=== PATIENT | female | born 1990 | race Caucasian/White ===

== ENCOUNTER 2022-09-24 05:02 | Emergency (ER) | payer SELFPAY ==
[~2022-09-24] VITALS: Ht 152.4 cm; Wt 105.2 kg
--- NOTE | 2022-09-24 05:27 | ED Neck-Back Pain/Injury ---
General Chief Complaint: Head/Cervical Problems Stated Complaint: NECK & SHOULDER PX Source of Information: Patient History of Present Illness Date Seen by Provider: Sep 24, 2022 Time Seen by Provider: 05:13 Initial Comments PT ARRIVES VIA POV FROM HOME C/O POSTERIOR NECK PAIN RADIATING DOWN TO LEFT SHOULDER AND HAS NUMBNESS AND TINGLING IN HER LEFT HAND SYMPTOMS BEGAN 2 MONTHS AGO, AFTER FALLING UP SOME STAIRS--SHE CAUGHT HERSELF WITH OUTSTRETCHED LEFT HAND AND IT "ROMAN EVERYTHING" SHE DID NOT HIT HER HEAD OR HAVE ANY DIRECT TRAUMA TO HER NECK OR SHOULDER . SHE IS LEFT HANDED SHE DENIES ANY PRIOR PROBLEMS WITH HER NECK OR ARM OR HAND. SHE STATES SHE CANNOT LAY FLAT ON HER BACK DUE TO PAIN, HER NECK HURTS WHEN SHE SWALLOWS OR COUGHS,. AND SHE CAN'T SLEEP DUE TO PAIN STATES PAIN "JUST KEEPS GETTING WORSE" SHE JUST MOVED HERE 3 MONTHS AGO FROM [place] SHE HAS BEEN TO [facility] "SEVERAL" TIMES FOR THIS PROBLEM. SHE HAS NOT ATTEMPTED TO ESTABLISH WITH ANYONE THERE FOR PRIMARY CARE. SHE HAS HAD REGULAR PLAIN FILM XRAYS, NO OTHER TESTS SHE WAS THERE LAST WEEK AND WAS PRESCRIBED FLEXERIL AND A STEROID. 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 PT HAS HAD BTL. PT TAKES MEDICATION FOR DEPRESSION AND ANXIETY. SHE HAS HAD PRIOR CHOLECYSTECTOMY, BTL, AND SURGERIES FOR HYDRADENITIS. SHE SMOKES 1/2 PPD, DENIES DRUG OR ALCOHOL USE. SHE IS NOT COVID OR FLU VACCINATED Other Comments PCP: [facility] Allergies and Home Medications Allergies Coded Allergies: Sulfa (Sulfonamide Antibiotics) (Verified Allergy, Mild, 01/21/15) amoxicillin (Verified Allergy, Mild, 01/21/15) butorphanol (Verified Allergy, Mild, 01/21/15) clavulanic acid (Verified Allergy, Mild, 01/21/15) prochlorperazine (Verified Allergy, Unknown, 09/24/22) Patient Home Medication List Home Medication List Reviewed: Yes Meloxicam (Meloxicam) 15 Mg Tablet, 15 MG PO DAILY Prescribed by: TURNER GODWIN on 09/24/22 0611 Tizanidine HCl (Zanaflex) 4 Mg Capsule, 4 MG PO TID Prescribed by: TURNER GODWIN on 09/24/22 0611 Review of Systems Constitutional: no symptoms reported EENTM: no symptoms reported Respiratory: no symptoms reported Cardiovascular: no symptoms reported Gastrointestinal: no symptoms reported Genitourinary: no symptoms reported : No LMP: Sep 24, 2022 Control/STD Prophylaxis: Other (BTL) Musculoskeletal: see HPI Skin: no symptoms reported Psychiatric/Neurological: See HPI Past Uvauvnn-Ytyxjm-Ssmqiu Hx Patient Social History Tobacco Use?: Yes Tobacco type used: Cigarettes Smoking Status: Current Everyday Smoker Use of E-Cig and/or Vaping dev: No Substance use?: Yes Substance type: Marijuana Alcohol Use?: Yes Alcohol Frequency: Once in a while Pt feels they are or have been: No Immunizations Up To Date Influenza Vaccine Up-to-Date: No; Not Current First/Initial COVID19 Vaccinat: N/A Past Medical History Surgeries: Yes (SURGERY FOR HYDRADENITIS) Gallbladder, Tubal Ligation Respiratory: No Cardiac: No Neurological: No : No Reproductive Disorders: No Female Reproductive Disorders: Denies 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 oz. 81.113918pb; BMI Method: General Appearance: No Apparent Distress, WD/WN, Obese, Other (HOLDS HEAD AND BODY STIFFLY. DOES NOT MAKE EYE CONTACT. MARKEDLY EXAGGERATED PAIN RESPONSE. 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 NO DETERIORATION IN PT'S CONDITION DURING ER STAY REVIEWED PRIOR RECORDS- SINGLE PRIOR VISIT IN 2014 FOR UNRELATED COMPLAINT DISCUSSED TEST RESULTS, ANTICIPATED COURSE, SYMPTOMATIC TREATMENT, NEED FOR FOLLOW UP AND RETURN PRECAUTIONS. 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 -STRAIGHTENING OF NORMAL CERVICAL LORDOSIS, WHICH MAY REPRESENT MUSCLE SPASM OR POSITIONING. Reviewed: Reviewed by Me Departure Impression Primary Impression: Neck pain Additional Impression: DEGENERATIVE CHANGES OF CERVICAL SPINE. Disposition: 01 HOME, SELF-CARE Condition: Stable Departure-Patient Inst. Decision time for Depature: 06:07 Referrals: ALKA LEDEZMA DO [facility] Patient Instructions: Neck Pain ED Add. Discharge Instructions: MOIST HEAT TO NECK AT 20 MINUTE INTERVALS STOP FLEXERIL AND IBUPROFEN, THESE ARE BEING REPLACED WITH DIFFERENT MEDICATIONS FOLLOW UP WITH [facility] THIS WEEK FOR FURTHER CARE--CALL TODAY TO SCHEDULE AN APPOINTMENT All discharge instructions reviewed with patient and/or family. Voiced understanding. Scripts Meloxicam (Meloxicam) 15 Mg Tablet 15 MG PO DAILY, #10 TAB Prov: TURNER GODWIN DO 09/24/22 Tizanidine HCl (Zanaflex) 4 Mg Capsule 4 MG PO TID for Spasms, #15 CAP Prov: TURNER GODWIN DO 09/24/22 TURNER GODWIN DO Sep 24, 2022 05:27
[2022-09-24] MEDS ORDERED: TIZA4CAP PO (06:11)
[2022-09-24] MEDS ORDERED: MELO15TA39 PO (06:11)
--- NOTE | 2022-09-24 06:17 | Diagnostic Imaging Report ---
PROCEDURE: CT cervical spine without contrast. TECHNIQUE: Multiple contiguous axial images were obtained through the cervical spine without the use of intravenous contrast. Sagittal and coronal reformations were then performed. Auto Exposure Controls were utilized during the CT exam to meet ALARA standards for radiation dose reduction. INDICATION: Pain, left hand numbness. COMPARISON: 04/08/2015 FINDINGS: Straightening of the normal cervical lordosis without significant anterolisthesis or retrolisthesis. Alignment of the atlantooccipital joint is well maintained. Scattered endplate degenerative changes are present, particularly within the upper cervical spine. These have worsened since 2014. No evidence of a recent vertebral body compression deformity. Mild disc space height loss at C3/C4 and C4/C5. No severe disc space height loss. No acute fracture or dislocation. No destructive osseous process. Scattered facet joint degenerative changes and uncovertebral joint hypertrophy. Disc osteophyte complex is present at C3/C4, particularly on the right. There is resulting multilevel central canal and neural foraminal stenosis. This includes moderate central canal stenosis, particularly on the right at C3/C4. Moderate right neural foraminal stenosis and mild left neural foraminal stenosis also noted at C3/C4. Mild left neural foraminal stenosis at C5/C6. No apical pneumothorax. The paraspinal soft tissues are unremarkable. IMPRESSION: No acute osseous abnormality. Scattered degenerative changes as described above, greatest at C3/C4 where there appears to be significant central canal and neural foraminal stenosis. MRI of the cervical spine non-emergently is recommended for further evaluation, particularly given provided history of radiculopathy and numbness. Straightening of normal cervical lordosis, which may simply be positional, though can also relate to muscle spasm. Agree with preliminary interpretation. Dictated by: Dictated on workstation # [id number]
[2022-09-24 06:20] VITALS: BP 123/85
== END 2022-09-24 06:20 | disposition home or self-care (01) ==
LOC: EDUNIT# 05:02 → ER 05:07
DX: M47.812 Spondylosis without myelopathy or radiculopathy, cervical region (principal); F41.9 Anxiety disorder, unspecified; F32.A Depression, unspecified; E66.9 Obesity, unspecified; F17.210 Nicotine dependence, cigarettes, uncomplicated; Z68.42 Body mass index [BMI] 45.0-49.9, adult; Z28.310 Unvaccinated for COVID-19; Z79.899 Other long term (current) drug therapy
CPT/HCPCS: 72125

== ENCOUNTER 2023-01-20 13:17 | Emergency (ER) | payer SELFPAY ==
[~2023-01-20] VITALS: Ht 160 cm; Wt 118.0 kg
[~2023-01-20 13:17] MED LIST: MELO15TA39 PO; TIZA4CAP PO
[2023-01-20] MEDS ORDERED: morphine INJ 10 MG/ML 1ML (SYR OR VIAL) IVP STA (13:28)
--- NOTE | 2023-01-20 13:28 | ED Chest Pain ---
General Chief Complaint: Chest Pain Stated Complaint: CHEST PAINS | LT ARM TINGLING Nursing Triage Note: PT AMB TO RM 6 PT CO OF CHEST PAIN 8/10, DIZZINESS, NAUSEA, HANDS TINGLING, EDEMA OF LOWER EXT AND BROWN. PAIN STARTED AT 1100 TODAY Source: patient Exam Limitations: no limitations History of Present Illness Date Seen by Provider: Jan 20, 2023 Time Seen by Provider: 13:26 Initial Comments Patient is a 32-year-old female with a history of migraines, hypertension who presents to the ED for chest pain, headache, nausea, tingling left arm, dizziness. Symptoms started around 11 AM while at school. States that she started V[place] being this sharp pressure-like pain substernal chest. Pain has been constant rates 8 out of 10. Started having tingling down the left arm feeling dizzy with a headache. She states she has not had symptoms like this before. Associated shortness of breath and does report a mild cough. She noted dark spots in her vision. She denies any vomiting, diarrhea, abdominal pain, dysuria, hematuria. Last menstrual cycle 1 month ago. She notes increasing leg swelling over the past week. Currently on Norvasc, hydrochlorothiazide, losartan. Denies of any unilateral muscle weakness, facial droop, visual loss. Allergies and Home Medications Allergies Coded Allergies: Sulfa (Sulfonamide Antibiotics) (Verified Allergy, Mild, 01/21/15) amoxicillin (Verified Allergy, Mild, 01/21/15) butorphanol (Verified Allergy, Mild, 01/21/15) clavulanic acid (Verified Allergy, Mild, 01/21/15) prochlorperazine (Verified Allergy, Unknown, 09/24/22) Patient Home Medication List Home Medication List Reviewed: Yes Furosemide (Lasix) 20 Mg Tablet, 20 MG PO DAILY Prescribed by: JEREMY HAY on 01/20/23 1433 Meloxicam (Meloxicam) 15 Mg Tablet, 15 MG PO DAILY Prescribed by: TURNER GODWIN on 09/24/22 0611 Tizanidine HCl (Zanaflex) 4 Mg Capsule, 4 MG PO TID Prescribed by: TURNER GODWIN on 09/24/22 0611 Review of Systems Review of Systems Constitutional: No chills, No diaphoresis, No malaise, No weakness Respiratory: Cough; Denies Orthopnea; Shortness of Air Cardiovascular: Chest Pain Gastrointestinal: Denies Abdominal Pain, Denies Diarrhea; Nausea; Denies Vomiting Genitourinary: Denies Burning, Denies Discharge, Denies Drainage, Denies Frequency Musculoskeletal: No back pain, No joint pain Skin: No change in color, No change in hair/nails All Other Systems Reviewed Negative Unless Noted: Yes Past Szpiqst-Kddyzh-Joforl Hx Immunizations Up To Date First/Initial COVID19 Vaccinat: N/A Past Medical History Surgeries: Yes (SURGERY FOR HYDRADENITIS) Gallbladder, Tubal Ligation Respiratory: No Cardiac: No Neurological: No Last Menstrual Period: Dec 14, 2022 Reproductive Disorders: No Female 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 oz. 81.746245rw; 46.00 BMI Method: General Appearance: No Apparent Distress, WD/WN HEENT: PERRL/EOMI, TMs Normal, Normal ENT Inspection, Pharynx Normal Neck: Full Range of Motion, Normal Inspection, Non Tender, Supple Respiratory: Chest Non Tender, Lungs Clear, Normal Breath Sounds, No Accessory Muscle Use, No Respiratory Distress Cardiovascular: Regular Rate, Rhythm, No Edema, No Gallop, No JVD, No Murmur Gastrointestinal: Normal Bowel Sounds, No Organomegaly, No Pulsatile Mass, Non Tender, Soft Extremity: Normal Capillary Refill, Pedal Edema (Bilateral lower extremity edema) Neurologic/Psychiatric: Alert, Oriented x3, No Motor/Sensory Deficits, Normal Mood/Affect Skin: Normal Color, Warm/Dry Progress/Results/Core Measures Results/Orders Lab Results Laboratory Tests Test 01/20/23 13:29 01/20/23 13:44 Range/Units White Blood Count 7.6 4.3-11.0 10^3/uL Red Blood Count 4.97 3.80-5.11 10^6/uL Hemoglobin 14.0 11.5-16.0 g/dL Hematocrit 41 35-52 % Mean Corpuscular Volume 82 80-99 fL Mean Corpuscular Hemoglobin 28 25-34 pg Mean Corpuscular Hemoglobin Concent 34 32-36 g/dL Red Cell Distribution Width 12.7 10.0-14.5 % Platelet Count 221 130-400 10^3/uL Mean Platelet Volume 10.1 9.0-12.2 fL Immature Granulocyte % (Auto) 1 % Neutrophils (%) (Auto) 59 42-75 % Lymphocytes (%) (Auto) 28 12-44 % Monocytes (%) (Auto) 6 0-12 % Eosinophils (%) (Auto) 6 0-10 % Basophils (%) (Auto) 1 0-10 % Neutrophils # (Auto) 4.4 1.8-7.8 10^3/uL Lymphocytes # (Auto) 2.1 1.0-4.0 10^3/uL Monocytes # (Auto) 0.4 0.0-1.0 10^3/uL Eosinophils # (Auto) 0.5 H 0.0-0.3 10^3/uL Basophils # (Auto) 0.1 0.0-0.1 10^3/uL Immature Granulocyte # (Auto) 0.0 0.0-0.1 10^3/uL Prothrombin Time 13.5 12.2-14.7 SEC INR Comment 1.0 0.8-1.4 Activated Partial Thromboplast Time 27 24-35 SEC Sodium Level 138 135-145 MMOL/L Potassium Level 3.8 3.6-5.0 MMOL/L Chloride Level 102 98-107 MMOL/L Carbon Dioxide Level 23 21-32 MMOL/L Anion Gap 13 5-14 MMOL/L Blood Urea Nitrogen 8 7-18 MG/DL Creatinine 0.77 0.60-1.30 MG/DL Estimat Glomerular Filtration Rate 104 BUN/Creatinine Ratio 10 Glucose Level 106 H 70-105 MG/DL Calcium Level 9.7 8.5-10.1 MG/DL Corrected Calcium 9.5 8.5-10.1 MG/DL Magnesium Level 2.0 1.6-2.4 MG/DL Total Bilirubin 0.4 0.1-1.0 MG/DL Aspartate Amino Transf (AST/SGOT) 24 5-34 U/L Alanine Aminotransferase (ALT/SGPT) 34 0-55 U/L Alkaline Phosphatase 65 40-136 U/L Myoglobin 30.7 10.0-92.0 NG/ML Troponin I < 0.028 <0.028 NG/ML B-Type Natriuretic Peptide < 10.0 <100.0 PG/ML Total Protein 7.2 6.4-8.2 GM/DL Albumin 4.2 3.2-4.5 GM/DL Serum Test, Qualitative NEGATIVE NEGATIVE Urine Color YELLOW Urine Clarity CLEAR Urine pH 6.0 5-9 Urine Specific [place] 1.020 1.016-1.022 Urine Protein NEGATIVE NEGATIVE Urine Glucose (UA) NEGATIVE NEGATIVE Urine Ketones NEGATIVE NEGATIVE Urine Nitrite NEGATIVE NEGATIVE Urine Bilirubin NEGATIVE NEGATIVE Urine Urobilinogen 0.2 < = 1.0 MG/DL Urine Leukocyte Esterase NEGATIVE NEGATIVE Urine RBC (Auto) NEGATIVE NEGATIVE Urine RBC NONE /HPF Urine WBC RARE /HPF Urine Squamous Epithelial Cells 2-5 /HPF Urine Crystals NONE /LPF Urine Bacteria TRACE /HPF Urine Casts NONE /LPF Urine Mucus NEGATIVE /LPF Urine Culture Indicated NO Urine Opiates Screen NEGATIVE NEGATIVE Urine Oxycodone Screen NEGATIVE NEGATIVE Urine Methadone Screen NEGATIVE NEGATIVE Urine Propoxyphene Screen NEGATIVE NEGATIVE Urine Barbiturates Screen NEGATIVE NEGATIVE Ur Tricyclic Antidepressants Screen POSITIVE H NEGATIVE Urine Phencyclidine Screen NEGATIVE NEGATIVE Urine Amphetamines Screen NEGATIVE NEGATIVE Urine Methamphetamines Screen NEGATIVE NEGATIVE Urine Benzodiazepines Screen NEGATIVE NEGATIVE Urine Cocaine Screen NEGATIVE NEGATIVE Urine Cannabinoids Screen POSITIVE H NEGATIVE My Orders Orders - PATRICIA GLOVER PA Ekg Tracing (01/20/23 13:18) Cbc With Automated Diff (01/20/23 13:24) Magnesium (01/20/23 13:24) Chest 1 View, Ap/Pa Only (01/20/23 13:24) Comprehensive Metabolic Panel (01/20/23 13:24) Myoglobin Serum (01/20/23 13:24) Protime With Inr (01/20/23 13:24) Partial Thromboplastin Time (01/20/23 13:24) Monitor-Rhythm Ecg Trace Only (01/20/23 13:24) Lipid Panel (01/21/23 06:00) Ed Iv/Invasive Line Start (01/20/23 13:24) Bnp Agustín (01/20/23 13:24) Troponin I [place] (01/20/23 13:24) Aspirin Chewable Tablet (Baby Aspirin Ch (01/20/23 13:30) Hcg,Qualitative Serum (01/20/23 13:25) Ua Culture If Indicated (01/20/23 13:25) Morphine Injection (Morphine Injection (01/20/23 13:28) Ondansetron Injection (Zofran Injectio (01/20/23 13:30) Nitroglycerin 0.4 Mg Btl 25's (Nitrostat (01/20/23 13:31) Drug Screen Stat (Urine) (01/20/23 13:34) Medications Given in ED Current Medications Medications Dose Ordered Sig/[place] Route Start Time Stop Time Status Last Admin Dose Admin Aspirin 324 mg ONCE ONCE PO 01/20/23 13:30 01/20/23 13:31 DC 01/20/23 13:34 324 MG Nitroglycerin 0.4 mg STK-MED ONCE SL 01/20/23 13:31 01/20/23 13:33 DC 01/20/23 13:35 0.4 MG Ondansetron HCl 4 mg ONCE ONCE IVP 01/20/23 13:30 01/20/23 13:31 DC 01/20/23 13:34 4 MG Vital Signs/I&O 01/20/23 13:20 Pulse 75 Resp 18 B/P (MAP) 143/103 (116) Pulse Ox 95 O2 Delivery Room Air Blood Pressure Mean: 116 Comment Sinus rhythm, low QRS voltage in precordial leads, 66 bpm, QRS duration 89 MS, QTc 397 MS Departure Communication (PCP) Reviewed previous ER visits, H&P, lab testing. History of hypertension. Differential diagnosis, arrhythmia, ACS, CHF, pneumonia, anxiety. Patient presents ED with chest pain short of breath cough numbness tingling left arm, headache dizziness. Cute onset around 11 while doing homework at school. Similar type symptoms in the past and states this could be related to being in fatigued and tired. She reports bilateral leg swelling for the past week. She is currently on hydrochlorothiazide and losartan. She was on amlodipine but stopped the medication. She reports blood pressure function waning. No family history of sudden cardiac . Due to current complaint cardiac work-up chest x-ray EKG drug screen. Denies any drug use or alcohol use on a regular basis. History of marijuana use. CBC, CMP grossly unremarkable. Normal troponin and BNP. She does have pitting edema bilateral lower extremities. No evidence erythema or bruising. Tenderness to palpate bilateral. Dorsalis pedis +2 bilateral cap refill less than 2. EKG showed sinus rhythm without evidence of arrhythmia, ST elevation or pression. Chest x-ray negative for pleural effusion, pneumonia, pneumothorax. she received aspirin and a nitro for the chest pain which seemed to improve. She was hypertensive and blood pressure improved to 118/37. Normal coags. Normal kidney function. no neurological red flag findings suggesting emergent imaging. No recent travels or surgeries. Not on control. Low risk for PE. Low heart score. Patient remained asymptomatic for over a hour. She states pain has resolved. Due to improvement in symptoms with reassuring lab work low heart score patient will be discharged. Cardiology outpatient follow-up. Discussed providing 3 to 4 days of 20 mg of Lasix to help with lower extremity swelling. Discussed low salt diet. Elevate feet at night. Discussed getting up and moving around to help with the edema. Recommend follow-up your PCP in 2 to 3 days for reevaluation. If any worsening symptoms return back to ED. Impression Primary Impression: Chest pain Additional Impression: Lower extremity edema Disposition: 01 HOME, SELF-CARE Condition: Stable Departure-Patient Inst. Decision time for Depature: 14:32 Referrals: [facility] [place] Primary Care Physician YONIS PERDOMO MD Patient Instructions: Chest Pain Add. Discharge Instructions: Avoid salt diet. Elevate feet at night. Follow-up your PCP for reevaluation. Cardiology outpatient follow-up. Continue monitoring blood pressure.. If continue symptoms dizzy lightheaded return back to ED All discharge instructions reviewed with patient and/or family. Voiced understanding. Scripts Furosemide (Lasix) 20 Mg Tablet 20 MG PO DAILY for 4 Days, #4 TAB Prov: PATRICIA GLOVER 01/20/23 PATRICIA GLOVER Jan 20, 2023 13:28
[2023-01-20] MEDS ORDERED: ONDANSETRON 4 MG/2 ML (SDV) Z0FRAN IVP ONE (13:30)
[2023-01-20] MEDS ORDERED: ASPIRIN 81 MG CHEWABLE TABLET PO ONE (13:30)
[2023-01-20] MEDS ORDERED: NITROGLYCERIN 0.4 MG SL TABS BTL 25'S SL ONE (13:31)
[2023-01-20 13:40] LABS: BASOPHILS # (AUTO) 0.1 10^3/uL (0.0-0.1); BASOPHILS % (AUTO) 1 % (0-10); EOSINOPHILS # (AUTO) 0.5 10^3/uL (0.0-0.3); EOSINOPHILS % (AUTO) 6 % (0-10); HEMATOCRIT 41 % (35-52); LYMPHOCYTES # (AUTO) 2.1 10^3/uL (1.0-4.0); LYMPHOCYTES % (AUTO) 28 % (12-44); MEAN CORPUSCULAR HEMOGLOBIN 28 pg (25-34); MEAN CORPUSCULAR HGB CONC 34 g/dL (32-36); MEAN CORPUSCULAR VOLUME 82 fL (80-99); MEAN PLATELET VOLUME 10.1 fL (9.0-12.2); MONOCYTES # (AUTO) 0.4 10^3/uL (0.0-1.0); MONOCYTES % (AUTO) 6 % (0-12); NEUTROPHILS # (AUTO) 4.4 10^3/uL (1.8-7.8); NEUTROPHILS % (AUTO) 59 % (42-75); PLATELET COUNT 221 10^3/uL (130-400); WHITE BLOOD COUNT 7.6 10^3/uL (4.3-11.0)
[2023-01-20 13:47] LABS: ALBUMIN 4.2 GM/DL (3.2-4.5); CHLORIDE 102 MMOL/L (98-107); POTASSIUM 3.8 MMOL/L (3.6-5.0); SODIUM 138 MMOL/L (135-145)
[2023-01-20 13:48] LABS: CALCIUM 9.7 MG/DL (8.5-10.1)
[2023-01-20 13:49] LABS: GLUCOSE 106 MG/DL (70-105); PROTHROMBIN TIME PATIENT 13.5 SEC (12.2-14.7); TOTAL PROTEIN 7.2 GM/DL (6.4-8.2)
[2023-01-20 13:50] LABS: CARBON DIOXIDE 23 MMOL/L (21-32)
--- NOTE | 2023-01-20 13:50 | Diagnostic Imaging Report ---
INDICATION: Chest pain. EXAMINATION: Portable chest, 1:46 p.m. FINDINGS: Heart size and pulmonary vascularity are normal. Lungs are clear. There are no effusions or pneumothoraces. IMPRESSION: Negative chest. Dictated by: Dictated on workstation # [id number]
[2023-01-20 13:51] LABS: BILIRUBIN,TOTAL 0.4 MG/DL (0.1-1.0)
[2023-01-20 13:53] LABS: ALKALINE PHOSPHATASE 65 U/L (40-136); CREATININE SERUM 0.77 MG/DL (0.60-1.30); GFR ESTIMATED 104
[2023-01-20 13:54] LABS: BUN/CREATININE RATIO 10
[2023-01-20 13:54] LABS: BILIRUBIN,URINE NEGATIVE (NEGATIVE); CLARITY,URINE CLEAR; COLOR,URINE YELLOW; GLUCOSE, URINE (UA) NEGATIVE (NEGATIVE); KETONES,URINE NEGATIVE (NEGATIVE); LEUKOCYTE ESTERASE ,URINE NEGATIVE (NEGATIVE); NITRITE,URINE NEGATIVE (NEGATIVE); PROTEIN,URINE NEGATIVE (NEGATIVE)
[2023-01-20 13:56] LABS: ALANINE AMINOTRANSFERASE 34 U/L (0-55)
[2023-01-20 14:07] LABS: AMPHETAMINE SCREEN, URINE NEGATIVE (NEGATIVE); BARBITURATE SCREEN URINE NEGATIVE (NEGATIVE); BENZODIAZEPINES SCREEN URINE NEGATIVE (NEGATIVE); CANNABINOID SCREEN, URINE POSITIVE (NEGATIVE); COCAINE SCREEN URINE NEGATIVE (NEGATIVE); METHADONE STAT NEGATIVE (NEGATIVE); OPIATE SCREEN URINE NEGATIVE (NEGATIVE); OXYCODONE STAT NEGATIVE (NEGATIVE); PROPOXYPHENE STAT NEGATIVE (NEGATIVE); TRICYCLIC ANTIDEPRESSANTS SCRE POSITIVE (NEGATIVE)
[2023-01-20 14:10] LABS: BACTERIA,URINE TRACE /HPF; WBC,URINE RARE /HPF
[2023-01-20] MEDS ORDERED: FURO-125 PO ×2 (14:33→14:49)
[2023-01-20 14:37] VITALS: BP 126/76
== END 2023-01-20 14:50 | disposition home or self-care (01) ==
LOC: EDUNIT# 13:17 → ER 13:18
DX: R07.2 Precordial pain (principal); I10 Essential (primary) hypertension; E66.9 Obesity, unspecified; R60.0 Localized edema; F17.210 Nicotine dependence, cigarettes, uncomplicated; Z79.899 Other long term (current) drug therapy; Z68.42 Body mass index [BMI] 45.0-49.9, adult
CPT/HCPCS: 36415; 71045; 80053; 80306; 81000; 83735; 83874; 83880; 84484; 84703; 85025; 85610; 85730; 93005; 93041